=== PATIENT | female | born 1985 | race Caucasian/White ===

== ENCOUNTER 2017-02-08 10:22 | Inpatient (IN) | payer OTHER ==
[~2017-02-08] VITALS: Ht 167.6 cm; Wt 92.0 kg
--- NOTE | 2017-02-08 08:43 | MH ---
cc: JACOB CHAHAL DATE OF ADMISSION: 02/08/2017 DATE OF : 1985 ADMITTING DIAGNOSIS 1. Term . 2. Previous . HISTORY OF PRESENT ILLNESS The patient is a 31-year-old single white female, para 1-0-0-1, with a LMP of 05/09/2016, EDC of 02/13/2017. Her first delivery was by for failure to progress after pushing for 2 hours. She is now admitted for repeat section. PAST MEDICAL HISTORY PREVIOUS SURGERY . MEDICATIONS Vitamins. ALLERGIES AMOXICILLIN. TRANSFUSIONS None. SOCIAL HISTORY She is single in a long-term relationship with the father of the baby. She is an independent insurance adjuster. Alcohol, tobacco and drugs are none. FAMILY HISTORY Noncontributory. PHYSICAL EXAMINATION GENERAL: A well-nourished, well-developed white female. VITAL SIGNS: Stable. HEENT: Normal. CHEST: Clear. HEART: Regular rate. BREASTS: Symmetrical. ABDOMEN: Gravid. EFW of 3200 grams. PELVIC: Cervix long, thick and closed. EXTREMITIES: Normal. IMAGING Ultrasound showed placenta anterior. ASSESSMENT As above. PLAN She is now admitted for repeat section. While in the office I explained the procedures, the risks, benefits and complications, and the patient elected to proceed. MD ASA Diaz/VINCENT /8:23 AM /8:30 AM SHIKHA
[~2017-02-08 10:22] MED LIST: Z.0.NO CURRENT MEDS
[2017-02-08] MEDS ORDERED: PREN29TA PO (11:26)
[2017-02-08 11:31] LABS: BASOPHIL # 0.1 TH/MM3 (0-0.2); BASOPHIL % 0.6 % (0.0-2.0); EOSINOPHIL # 0.1 TH/MM3 (0-0.4); EOSINOPHIL % 0.6 % (0.0-4.0); HEMATOCRIT 39.8 % (35.0-46.0); HEMO FLAGS DIFF FINAL; LYMPH % 20.7 % (9.0-44.0); LYMPHOCYTE # 2.4 TH/MM3 (1.0-4.8); MEAN CELL VOLUME 87.3 FL (80.0-100.0); MEAN CORPUSCULAR HEMOGLOBIN 29.5 PG (27.0-34.0); MEAN CORPUSCULAR HGB CONC 33.8 % (32.0-36.0); MONO % 9.8 % (0.0-8.0); NEUT % 68.3 % (16.0-70.0); PLATELET COUNT 249 TH/MM3 (150-450); RED BLOOD COUNT 4.56 MIL/MM3 (4.00-5.30); RED CELL DISTRIBUTION WIDTH 14.4 % (11.6-17.2); WHITE BLOOD COUNT 11.7 TH/MM3 (4.0-11.0)
[2017-02-08] MEDS ORDERED: CITRIC ACID-SODIUM CITRATE LIQ 30 ML UDC PO SCH (11:45)
[2017-02-08] MEDS ORDERED: ceFAZolin 2 GM PREMIX 50 ML IV SCH (11:45)
[2017-02-08] MEDS ORDERED: MORPHINE SULFATE PF 5 MG/10 ML VIAL ONE (12:00)
[2017-02-08] MEDS ORDERED: LACTATED RINGER'S 1000 ML IV ONE (12:00)
[2017-02-08] MEDS ORDERED: LACTATED RINGER'S 1000 ML INJ 1,000 ML IV ONE (12:00)
[2017-02-08] MEDS ORDERED: KETOROLAC TROMETHAMINE 30 MG/ML (IVP) VIAL IV PUSH ONE (12:00)
[2017-02-08] MEDS ORDERED: ONDANSETRON HCL 4 MG/2 ML VIAL IV PUSH ONE (12:00)
[2017-02-08] MEDS ORDERED: OXYTOCIN 10 UNIT/ML AMP IV ONE (12:00)
[2017-02-08] MEDS ORDERED: PHENYLEPH/NS 1000 MCG/10 ML SYR IV ONE (12:00)
[2017-02-08] MEDS ORDERED: ACETAMINOPHEN 1000 MG/100 ML 100 ML IV ONE (12:10)
[2017-02-08] MEDS ORDERED: CLINDAMYCIN PHOS 600 MG/4 ML VIAL ONE (12:20)
[2017-02-08] MEDS ORDERED: LACTATED RINGER'S 1000 ML IV SCH (12:30)
[2017-02-08] MEDS ORDERED: LACTATED RINGER'S 1000 ML INJ 1,000 ML IV SCH (13:04)
[2017-02-08] MEDS ORDERED: SIMETHICONE 80 MG CHEWABLE TAB PO PRN (13:30)
[2017-02-08] MEDS ORDERED: SODIUM CHLORIDE 0.9% FLUSH 5 ML FLUSH IV PRN (13:30)
[2017-02-08] MEDS ORDERED: oxyCODONE/ACETAMINOPHEN 5 MG/325 MG TAB PO PRN ×2 (13:30)
[2017-02-08] MEDS ORDERED: ONDANSETRON HCL 4 MG/2 ML VIAL IVP PRN (13:30)
[2017-02-08] MEDS ORDERED: DOCUSATE SODIUM 50 MG/SENNA 8.6 MG TAB PO PRN (13:30)
[2017-02-08] MEDS ORDERED: ZOLPIDEM TARTRATE 5 MG TAB PO PRN (13:30)
[2017-02-08] MEDS ORDERED: MEASLES, MUMPS, RUBELLA VACCINE 0.5 ML VIAL SQ ONE (13:30)
[2017-02-08] MEDS ORDERED: ACETAMINOPHEN 1000 MG/100 ML VIAL IV SCH (13:30)
[2017-02-08] MEDS ORDERED: OXYTOCIN 30 UNITS-500ML PREMIX 500 ML IV ONE (13:30)
[2017-02-08] MEDS ORDERED: KETOROLAC TROMETHAMINE 30 MG/ML (IVP) VIAL IV PUSH PRN (13:30)
--- NOTE | 2017-02-08 13:33 | MP ---
cc: FELAJACOB DATE OF SURGERY 02/08/2017 PREOPERATIVE DIAGNOSIS 1. Term 2. Previous section POSTOPERATIVE DIAGNOSIS 1. Term 2. Previous section 3. Delivered PROCEDURE Repeat low transverse section ANESTHESIA Spinal SURGEON Jacob Lamas MD HAY SORTER Senait Chao ESTIMATED BLOOD LOSS 500 cc FLUIDS One liter of Crystalloid OBJECTIVE FINDINGS Following the induction of adequate spinal anesthesia, the patient was prepped and draped supine on the operating room table in the left lateral position in the usual sterile fashion with the bladder being drained via Fernandes catheterization. The abdomen was opened through a Pfannenstiel incision using a knife to cut down through skin to the fascia. The fascia opened transversely, stripped from the muscles, rectus muscles split in the midline and the peritoneum opened sharply without incident. The bladder flap was taken down sharply, retracted inferiorly with a Erie blade. The lower uterine segment incised transversely with a knife and extended with blunt dissection. Membranes were ruptured revealing clear fluid. The baby was in the LOT position. The vacuum extractor applied to the occiput and used to gently lift the head through the uterine abdominal wound. The mouth was suctioned, cord clamped and cut and the baby passed to the awaiting team, a viable vigorous female, 's 2, 7 and 9. Cord blood was collected for typing. The placenta manually removed and the uterine cavity cleaned with laps. The uterus was exteriorized and closed in two layers with a running suture first with a running locking stitch of 0 Vicryl, the second a running imbricating stitch of 0 Vicryl. Posterior inspection of the uterus, tubes and ovaries were normal. The uterus was placed in the peritoneal cavity. Irrigation performed. No bleeding was evident. The bladder flap was closed with a running stitch of 3-0 Vicryl. All laps and retractors were removed. Counts were correct. The anterior peritoneum closed with a running stitch of 2-0 Vicryl, the fascia closed with a running locking stitch of 0 Vicryl corner to midline and tied, subcu running 3-0 Vicryl, subcu closed with running 3-0 Vicryl and the skin with a running subcuticular stitch of 3-0 Monocryl. Dermabond applied. All counts correct. The patient was awakened and taken to the Recovery Room in good condition. MD ASA Diaz/BRANDIN /1:19 PM /1:22 PM
[2017-02-08 14:15] VITALS: BP 119/66; PULSE 58; RESP 18; O2SAT 99
[2017-02-08] MEDS ORDERED: OXYTOCIN 30 UNITS-500ML PREMIX 500 ML ONE (14:18)
[2017-02-08 14:50] VITALS: BP 100/67; PULSE 57; RESP 16; TEMP 97.4
[2017-02-08] MEDS ORDERED: OXYTOCIN 30 UNITS-500ML PREMIX 500 ML IV PRN (18:15)
[2017-02-08] MEDS ORDERED: SODIUM CHLORIDE 0.9% FLUSH 5 ML FLUSH IV SCH (21:00)
[2017-02-08 21:05] VITALS: BP 99/61; PULSE 72; RESP 18; TEMP 96.3
[2017-02-09 01:05] VITALS: PULSE 70; RESP 18; TEMP 97.9
[2017-02-09 05:05] VITALS: BP 98/63; PULSE 62; RESP 18; TEMP 97.7
[2017-02-09 10:45] LABS: AUTOMATED NEUTROPHIL # 8.8 TH/MM3 (1.8-7.7); BASOPHIL % 0.2 % (0.0-2.0); EOSINOPHIL # 0.1 TH/MM3 (0-0.4); EOSINOPHIL % 0.8 % (0.0-4.0); HEMATOCRIT 36.9 % (35.0-46.0); HEMO FLAGS DIFF FINAL; LYMPH % 11.8 % (9.0-44.0); LYMPHOCYTE # 1.3 TH/MM3 (1.0-4.8); MEAN CELL VOLUME 87.5 FL (80.0-100.0); MEAN CORPUSCULAR HEMOGLOBIN 28.6 PG (27.0-34.0); MEAN CORPUSCULAR HGB CONC 32.7 % (32.0-36.0); MONO % 7.3 % (0.0-8.0); NEUT % 79.9 % (16.0-70.0); PLATELET COUNT 238 TH/MM3 (150-450); RED BLOOD COUNT 4.22 MIL/MM3 (4.00-5.30); RED CELL DISTRIBUTION WIDTH 14.6 % (11.6-17.2); WHITE BLOOD COUNT 11.1 TH/MM3 (4.0-11.0)
[2017-02-09] MEDS: IBUPROFEN 600 MG TAB PO PRN ×2 (10:45→18:35)
[2017-02-09 11:18] LABS: BICARBONATE 26.2 MEQ/L (21.0-32.0); POTASSIUM 3.9 MEQ/L (3.5-5.1)
[2017-02-09 21:20] VITALS: BP 114/69; PULSE 72; RESP 18; TEMP 98
[2017-02-10] MEDS: IBUPROFEN 600 MG TAB PO PRN ×3 (00:20→13:42)
[2017-02-10] MEDS ORDERED: DIPHTH/TETANUS/ACEL PERTUSSIS (BOOSTER) 0.5 ML VIAL/PFS IM ONE (09:00)
[2017-02-10 23:05] VITALS: BP 109/68; PULSE 68; RESP 18; TEMP 98.1
[2017-02-11] MEDS: IBUPROFEN 600 MG TAB PO PRN ×2 (04:03→10:04)
[2017-02-11 07:30] VITALS: BP 116/71; PULSE 91; RESP 16; TEMP 97.9
--- NOTE | 2017-02-11 08:21 | HHI.DCPOC ---
Discharge Care Plan Report Symptoms to Your Doctor -Temperature above 100.5 degrees -Redness, of incision or excessive or foul smelling drainage -Unusual pain or calf pain -Increased vaginal bleeding -Painful or difficulty urinating -Feelings of extreme sadness or anxiety after 2 weeks Goals to Promote Your Health * To prevent worsening of your condition and complications * To maintain your health at the optimal level Directions to Meet Your Goals Take your medications as prescribed Follow your dietary instruction Follow activity as directed Ensure plenty of rest for recovery Drink fluids for hydration Keep your appointments as scheduled Take your immunizations and boosters as scheduled If your symptoms worsen call your PCP, if no PCP go to Urgent Care Center or Emergency Room Smoking is Dangerous to Your Health. Avoid second hand smoke Call the 24-hour crisis hotline for domestic abuse at Rashel Lamas MD Feb 11, 2017 08:21
--- NOTE | 2017-02-11 08:36 | MD ---
cc: [facility] ADMISSION DATE: 02/08/2017 DISCHARGE DATE: 02/11/2017 Priti Visit Search.Discharge Date ADMITTING DIAGNOSIS 1. Term . 2. Previous . DISCHARGE DIAGNOSIS 1. Term . 2. Previous . 3. Delivered. HISTORY OF PRESENT ILLNESS The patient is a 31-year-old single white female, para 1-0-0-1, with an EDC of 02/13/2017 by dates and ultrasound. Her course was benign. Her first delivery was by for failure to progress OP. Her labs were normal. Her strep culture was negative. HOSPITAL COURSE On the day of admission she underwent a repeat low transverse section with delivery of a viable vigorous female. she did well and was discharged home in excellent condition on 02/11/2017. The baby was a female, 8 pounds 4 ounces, Apgars 2, 7 and9. She is going to use [id number] Motrin and Tylenol for pain relief, and her vitamins daily. She is to avoid heavy lifting and sexual activity. Return to see me in one week. She will call for any abnormal symptoms. MD ASA Diaz/VINCENT /8:26 AM /8:29 AM
== END 2017-02-11 14:44 | disposition home or self-care (01) | DRG 766 ==
LOC: H2EB 10:22 → H1EA 14:33
PROVIDERS: ADMIT Obstetrics & Gynecology; ATTEND Obstetrics & Gynecology
PROC: 10D00Z1 Extraction of Products of Conception, Low, Open Approach (ICD-10-PCS; principal; 2017-02-08)
DX: O34.211 Maternal care for low transverse scar from previous cesarean delivery (principal); O62.2 Other uterine inertia; Z37.0 Single live birth; Z3A.00 Weeks of gestation of pregnancy not specified
CPT/HCPCS: 80048; 85025; 86850; 86900; 86901; J0131; J1885; J2274; J2370; J2405; J2590; J7120